=== PATIENT | male | born 1995 | race Two or more races ===

== ENCOUNTER 2020-11-06 18:31 | Emergency (ER) | payer BC ==
[~2020-11-06] VITALS: Ht 172.7 cm; Wt 104.3 kg
[2020-11-06 22:00] VITALS: BP 152/98
== END 2020-11-07 00:14 | disposition home or self-care (01) ==
LOC: ER 18:31
DX: S05.52XA Penetrating wound with foreign body of left eyeball, initial encounter (principal); X58.XXXA Exposure to other specified factors, initial encounter; Y93.89 Activity, other specified; Y92.89 Other specified places as the place of occurrence of the external cause; Y99.8 Other external cause status
CPT/HCPCS: 99284; J7030